=== PATIENT | female | born 2000 | race Caucasian/White ===

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

== ENCOUNTER 2021-01-31 00:10 | Inpatient (IN) | payer MEDICAID ==
[2021-01-31] MEDS ORDERED: Terbutaline 1 MG/ML SDV SUBCUT PRN (00:18)
[2021-01-31] MEDS ORDERED: Sodium Chloride 0.9% 10 ML SDV IV PRN (00:18)
[2021-01-31] MEDS ORDERED: Carboprost Tromethamine 250 MCG/1 ML Amp IM PRN (00:18)
[2021-01-31] MEDS ORDERED: Sodium Chloride 0.9% 2.5 ML Syringe FLUSH PRN (00:18)
[2021-01-31] MEDS ORDERED: Ondansetron 4 MG/2 ML SDV IVPUSH PRN (00:18)
[2021-01-31] MEDS ORDERED: Tranexamic Acid 1,000 MG in Sodium Chloride 0.9% 100 ML IV PRN (00:18)
[2021-01-31] MEDS ORDERED: Nalbuphine 10 MG/1 ML Vial IVPUSH PRN (00:18)
[2021-01-31] MEDS ORDERED: Misoprostol 25 MCG (1/4 of 100 MCG) Tab VAG PRN ×3 (00:18→05:37)
[2021-01-31] MEDS ORDERED: Methylergonovine 0.2 MG/1 ML Amp IM PRN (00:18)
[2021-01-31] MEDS ORDERED: Lidocaine 1% 50 ML MDV INJECT PRN (00:18)
[2021-01-31] MEDS ORDERED: Water For Irrigation,Sterile 1,000 ML Container IRR PRN (00:18)
[2021-01-31] MEDS ORDERED: Sodium Chloride 0.9% 10 ML Syringe FLUSH PRN (00:18)
[2021-01-31] MEDS ORDERED: Misoprostol 200 MCG Tab PO PRN (00:18)
[2021-01-31] MEDS ORDERED: Misoprostol 25 MCG (1/4 of 100 MCG) Tab PO ONE (00:29)
[2021-01-31] MEDS ORDERED: Oxytocin/0.9 % Sodium Chloride 30 UNIT/500 ML BAG IV SCH ×2 (00:30)
[2021-01-31] MEDS: Lactated Ringers 1,000 ML IV SCH ×3 (01:00→12:15)
[2021-01-31] MEDS ORDERED: Misoprostol 25 MCG (1/4 of 100 MCG) Tab PO PRN ×2 (05:33→05:40)
--- NOTE | 2021-01-31 07:26 | PCM.LDHP ---
L&D History of Present Illness - General Date of Service: 01/31/21 Admit Problem/Dx: Patient Status Order with Admit Dx/Problem 01/31/21 00:18 Patient Status [ADT] Routine Admission Diagnosis/Problem Admission Diagnosis/Problem 01/31/21 07:22 Minna is a 20 yo [id number] 39+0 weeks gestation (LIZ(US) 02/07/2021) that presents to L&D today for elective IOL. Patient seen in office 01/27/2021, RBAs of IOL and mode of cervical ripening (cytotec) discussed in office, consents signed. Reports adequate movement. Denies yessica vaginal bleeding, LOF, pain at this time. O pos, RE, GBS neg. EFW via [place] 7+ lbs. Unremarkable medical history/ NKDA. Medications: PNV. Patient has no other complaints or concerns at this time, expresses desire to continue with elective IOL. Source of Information: Patient History Limitations: Reports: No Limitations - History of Present Illness Pain Score: 2 Improves with: Reports: None Worsens with: Reports: None Associated Symptoms: Reports: N - Related Data Allergies/Adverse Reactions: Allergies Allergy/AdvReac Type Severity Reaction Status Date / Time No Known Allergies Allergy Verified 01/20/21 10:18 Home Medications: Home Meds . 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 General: Reports: No Symptoms HEENT: Reports: No Symptoms Pulmonary: Reports: No Symptoms Cardiovascular: Reports: No Symptoms Gastrointestinal: Reports: No Symptoms Genitourinary: Reports: No Symptoms Musculoskeletal: Reports: No Symptoms Skin: Reports: No Symptoms Psychiatric: Reports: No Symptoms Neurological: Reports: No Symptoms Hematologic/Lymphatic: Reports: No Symptoms Immunologic: Reports: No Symptoms L&D Exam - Exam Exam: See Below - Vital Signs Vital Signs: VSS, afebrile. See flowsheet. Weight: 223 lb - OB Specific Fundal Height In cm: 39 Contraction Duration (sec): 50-60 Contraction Frequency (min): 1-3 Contraction Intensity: Mild Movement: Active Heart Tones: Present Heart Tones per Min: 130 Heart Rate (FHR) Variability: Moderate (6-25 bmp) Presentation: Vertex (via SVE) - Elkins Score Elkins Score Cervix Position: Posterior Elkins Score Consistency: Soft Elkins Score Effacement: 31-50% Elkins Score Dilation: 1-2 cm Elkins Score Infant's Station: -3 Elkisn Score Total: 4 - Exam General: Alert, Oriented, Other HEENT: Conjunctiva Clear, EACs Clear, Hearing Intact, Mucosa Moist & [place], Nares Patent, PERRLA Neck: Supple, Trachea Midline Lungs: Clear to Auscultation, Normal Respiratory Effort Cardiovascular: Regular Rate, Regular Rhythm GI/Abdominal Exam: Normal Bowel Sounds, Soft, Non-Tender, No Organomegaly, No Distention Rectal Exam: Deferred Genitourinary: Normal external exam, Normal bimanual exam, Enlarged uterus (Gra vid uterus) Back Exam: Normal Inspection, Full Range of Motion Extremities: Normal Inspection, Normal Range of Motion, Non-Tender, No Pedal Edema, Normal Capillary Refill Skin: Warm, Dry, Intact Neurological: Cranial Nerves Intact, Reflexes Equal Bilateral Psychiatric: Alert, Normal Affect, Normal Mood - Patient Data Lab Results Last 24 hrs: Laboratory Results - last 24 hr 01/31/21 01/31/21 01/31/21 Range/Units 00:15 01:00 01:00 WBC 10.89 (4.0-11.0) K/uL RBC 3.62 L (4.30-5.90) M/uL Hgb 12.3 (12.0-16.0) g/dL Hct 35.7 L (36.0-46.0) % MCV 98.6 H (80.0-98.0) fL MCH 34.0 H (27.0-32.0) pg MCHC 34.5 (31.0-37.0) g/dL RDW Std Deviation 46.1 (28.0-62.0) fl RDW Coeff of Ronald 13 (11.0-15.0) % Plt Count 164 (150-400) K/uL MPV 9.60 (7.40-12.00) fL SARS-CoV-2 RNA (LUIS) NEGATIVE (NEGATIVE) Blood Type O POSITIVE Antibody Screen NEGATIVE Result Diagrams: 01/31/21 01:00 - Problem List (1) Encounter for induction of labor SNOMED Code(s): 928343667 ICD Code: Z34.90 - ENCNTR FOR SUPRVSN OF NORMAL , UNSP, UNSP TRIM ANGELO Status: Acute Priority: High Current Visit: Yes (2) 39 weeks gestation of SNOMED Code(s): 79404865 ICD Code: Z3A.39 - 39 WEEKS GESTATION OF Status: Acute Priority: High Current Visit: Yes Problem List Initiated/Reviewed/Updated: Yes Orders Last 24hrs: Active Orders 24 hr Category Date Time Status Patient Status [ADT] Routine ADT 01/31/21 00:18 Active Bedrest Bathroom Privileges [RC] ASDIRECTED Care 01/31/21 00:18 Active Communication Order [RC] ASDIRECTED Care 01/31/21 00:18 Active Communication Order [RC] ASDIRECTED Care 01/31/21 00:18 Active Heart Tones [RC] CONTINUOUS Care 01/31/21 00:18 Active Non Stress Test [RC] PER UNIT ROUTINE Care 01/31/21 00:18 Active May Shower [RC] ASDIRECTED Care 01/31/21 00:18 Active Notify Provider [RC] PRN Care 01/31/21 00:18 Active Notify Provider [RC] PRN Care 01/31/21 00:18 Active Notify Provider [RC] PRN Care 01/31/21 00:18 Active Notify Provider [RC] STAT Care 01/31/21 00:18 Active Oxygen Therapy [RC] ASDIRECTED Care 01/31/21 00:18 Active Up ad Paty [RC] ASDIRECTED Care 01/31/21 00:18 Active Vaginal Exam [RC] PRN Care 01/31/21 00:18 Active Vaginal Exam [RC] PRN Care 01/31/21 00:18 Active Vital Signs [RC] PER UNIT ROUTINE Care 01/31/21 00:18 Active Vital Signs [RC] PER UNIT ROUTINE Care 01/31/21 00:18 Active RPR (SYPHILIS SERO) W/ RFLX [REF] Routine Lab 01/31/21 01:00 Received Carboprost Tromethamine [Hemabate DS] Med 01/31/21 00:18 Active 250 mcg IM ASDIRECTED PRN Lactated Ringers [Ringers, Lactated] 1,000 ml Med 01/31/21 00:30 Active IV ASDIRECTED Lidocaine 1% [Xylocaine 1%] Med 01/31/21 00:18 Active 50 ml INJECT ONETIME PRN Methylergonovine [Methergine] Med 01/31/21 00:18 Active 0.2 mg IM ASDIRECTED PRN Nalbuphine [Nubain] Med 01/31/21 00:18 Active 10 mg IVPUSH Q1H PRN Ondansetron [Zofran] Med 01/31/21 00:18 Active 4 mg IVPUSH Q4H PRN Oxytocin/0.9 % Sodium Chloride [Oxytocin 30 Unit/500 ML Med 01/31/21 00:30 Active -NS] 30 unit in 500 ml IV TITRATE Oxytocin/0.9 % Sodium Chloride [Oxytocin 30 Unit/500 ML Med 01/31/21 00:30 Active -NS] 30 unit in 500 ml IV TITRATE Sodium Chloride 0.9% [Normal Saline] Med 01/31/21 00:18 Active 10 ml IV ASDIRECTED PRN Sodium Chloride 0.9% [Saline Flush] Med 01/31/21 00:18 Active 10 ml FLUSH ASDIRECTED PRN Sodium Chloride 0.9% [Saline Flush] Med 01/31/21 00:18 Active 2.5 ml FLUSH ASDIRECTED PRN Terbutaline [Brethine] Med 01/31/21 00:18 Active 0.25 mg SUBCUT ASDIRECTED PRN Tranexamic Acid [Cyklokapron] 1,000 mg Med 01/31/21 00:18 Active Sodium Chloride 0.9% [Normal Saline] 100 ml IV ONETIME Water For Irrigation,Sterile [Sterile Water for Med 01/31/21 00:18 Active Irrigation] 1,000 ml IRR ASDIRECTED PRN miSOPROStoL [Cytotec] Med 01/31/21 00:18 Active 200 mcg PO ONETIME PRN miSOPROStoL [Cytotec] Med 01/31/21 05:40 Active 25 mcg PO Q4H PRN miSOPROStoL [Cytotec] Med 01/31/21 00:18 Active 25 mcg VAG ONETIME PRN miSOPROStoL [Cytotec] Med 01/31/21 05:37 Active 25 mcg VAG Q4H PRN Scalp Electrode [WOMSER] Per Unit Routine Oth 01/31/21 00:18 Ordered Medication Administration Instruction [OM.PC] Q3H Oth 01/31/21 00:30 Ordered Peripheral IV Insertion Adult [OM.PC] Routine Oth 01/31/21 00:18 Ordered Resuscitation Status Routine Resus Stat 01/31/21 00:18 Ordered Medication Orders Carboprost Tromethamine (Carboprost Tromethamine 250 Mcg/1 Ml Amp) 250 mcg IM ASDIRECTED PRN PRN Reason: Post Hemorrhage Oxytocin/Sodium Chloride (Oxytocin 30 Unit/500 Ml-Ns) 30 unit in 500 mls @ 2 mls/hr IV TITRATE AUTUMN; Protocol Lactated Ringer's (Ringers, Lactated) 1,000 mls @ 150 mls/hr IV ASDIRECTED AUTUMN Last Admin: 01/31/21 07:20 Dose: 150 mls/hr Documented by: Infusion: 01/31/21 07:20 Dose: 150 mls/hr Documented by: Admin: 01/31/21 01:00 Dose: 150 mls/hr Documented by: BOLSSAC Oxytocin/Sodium Chloride (Oxytocin 30 Unit/500 Ml-Ns) 30 unit in 500 mls @ 999 mls/hr IV TITRATE AUTUMN Tranexamic Acid 1,000 mg/ (Sodium Chloride) 110 mls @ 660 mls/hr IV ONETIME PRN PRN Reason: Bleeding Lidocaine HCl (Lidocaine 1% 50 Ml Mdv) 50 ml INJECT ONETIME PRN PRN Reason: Laceration repair Methylergonovine Maleate (Methylergonovine 0.2 Mg/1 Ml Amp) 0.2 mg IM ASDIRECTED PRN PRN Reason: Post Hemorrhage Misoprostol (Misoprostol 25 Mcg (1/4 Of 100 Mcg) Tab) 25 mcg VAG ONETIME PRN PRN Reason: Cervical Ripening Last Admin: 01/31/21 01:33 Dose: 25 mcg Documented by: JARENAC Misoprostol (Misoprostol 200 Mcg Tab) 200 mcg PO ONETIME PRN PRN Reason: Post Hemorrhage Misoprostol (Misoprostol 25 Mcg (1/4 Of 100 Mcg) Tab) 25 mcg VAG Q4H PRN PRN Reason: Cervical Ripening Last Admin: 01/31/21 05:49 Dose: 25 mcg Documented by: CATERINASSAC Misoprostol (Misoprostol 25 Mcg (1/4 Of 100 Mcg) Tab) 25 mcg PO Q4H PRN PRN Reason: Other Last Admin: 01/31/21 05:49 Dose: 25 mcg Documented by: JARENAC Nalbuphine HCl (Nalbuphine 10 Mg/1 Ml Vial) 10 mg IVPUSH Q1H PRN PRN Reason: Pain (severe 7-10) Last Admin: 01/31/21 05:56 Dose: 10 mg Documented by: JARENAC Ondansetron HCl (Ondansetron 4 Mg/2 Ml Sdv) 4 mg IVPUSH Q4H PRN PRN Reason: Nausea/Vomiting Sodium Chloride (Sodium Chloride 0.9% 10 Ml Syringe) 10 ml FLUSH ASDIRECTED PRN PRN Reason: Keep Vein Open Sodium Chloride (Sodium Chloride 0.9% 2.5 Ml Syringe) 2.5 ml FLUSH ASDIRECTED PRN PRN Reason: Keep Vein Open Sodium Chloride (Sodium Chloride 0.9% 10 Ml Sdv) 10 ml IV ASDIRECTED PRN PRN Reason: IV Use Sterile Water (Water For Irrigation,Sterile 1,000 Ml Container) 1,000 ml IRR ASDIRECTED PRN PRN Reason: delivery Terbutaline Sulfate (Terbutaline 1 Mg/Ml Sdv) 0.25 mg SUBCUT ASDIRECTED PRN PRN Reason: Tacysystole Assessment/Plan Comment:: Admit for observation for elective IOL in anticipation of of term viable . FHR Cat I. Spontaneous contractions noted. Reassess cervical dilation ~1030 am. If no change has been make, may administer cytotec per orders. May ambulate and hydrotherapy as desired after reactive NST achieved; repeat NST per orders. May receive epidural if desired at 5+ cm. See new orders. Dr. Peoples notified and agreeable with POC.
[2021-01-31] MEDS ORDERED: Bupivacaine 0.25% 10 ML SDV ONE (12:11)
[2021-01-31] MEDS ORDERED: Ropivacaine HCl/PF 200 ML ONE (12:11)
--- NOTE | 2021-01-31 13:08 | PCM.PREANE ---
Preanesthetic Assessment - Anesthesia/Transfusion/Family Hx Anesthesia History: No Prior Anesthesia Family History of Anesthesia Reaction: No Transfusion History: Prior Transfusion Reaction - Review of Systems General: No Symptoms Pulmonary: No Symptoms Cardiovascular: No Symptoms Gastrointestinal: No Symptoms Neurological: No Symptoms Other: Reports: None - Physical Assessment Height: 5 ft 7 in Weight: 223 lb ASA Class: 2 Mental Status: Alert & Oriented x3 Airway Class: Mallampati = 3 Dentition: Reports: Normal Dentition ROM/Head Extension: Full Lungs: Clear to Auscultation, Normal Respiratory Effort Cardiovascular: Regular Rate, Regular Rhythm - Lab Values: Laboratory Last Values WBC 10.89 K/uL (4.0-11.0) 01/31/21 01:00 RBC 3.62 M/uL (4.30-5.90) L 01/31/21 01:00 Hgb 12.3 g/dL (12.0-16.0) 01/31/21 01:00 Hct 35.7 % (36.0-46.0) L 01/31/21 01:00 MCV 98.6 fL (80.0-98.0) H 01/31/21 01:00 MCH 34.0 pg (27.0-32.0) H 01/31/21 01:00 MCHC 34.5 g/dL (31.0-37.0) 01/31/21 01:00 RDW Std Deviation 46.1 fl (28.0-62.0) 01/31/21 01:00 RDW Coeff of Ronald 13 % (11.0-15.0) 01/31/21 01:00 Plt Count 164 K/uL (150-400) 01/31/21 01:00 MPV 9.60 fL (7.40-12.00) 01/31/21 01:00 SARS-CoV-2 RNA (LUIS) NEGATIVE (NEGATIVE) 01/31/21 00:15 Blood Type O POSITIVE 01/31/21 01:00 Antibody Screen NEGATIVE 01/31/21 01:00 - Allergies Allergies/Adverse Reactions: Allergies Allergy/AdvReac Type Severity Reaction Status Date / Time No Known Allergies Allergy Verified 01/20/21 10:18 - Blood Blood Available: Yes Product(s) Available: PRBC - Anesthesia Plan Pre-Op Medication Ordered: None - Acknowledgements Anesthesia Type Planned: Epidural Pt an Appropriate Candidate for the Planned Anesthesia: Yes Alternatives and Risks of Anesthesia Discussed w Pt/Guardian: Yes Pt/Guardian Understands and Agrees with Anesthesia Plan: Yes PreAnesthesia Questionnaire - Past Health History Medical/Surgical History: Denies 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 [No Known Home Meds] 06/20/19 [History] - CURRENT (IN HOUSE) MEDS Current Meds: Current Medications Carboprost Tromethamine (Carboprost Tromethamine 250 Mcg/1 Ml Amp) 250 mcg IM ASDIRECTED PRN PRN Reason: Post Hemorrhage Oxytocin/Sodium Chloride (Oxytocin 30 Unit/500 Ml-Ns) 30 unit in 500 mls @ 2 mls/hr IV TITRATE AUTUMN; Protocol Lactated Ringer's (Ringers, Lactated) 1,000 mls @ 150 mls/hr IV ASDIRECTED AUTUMN Last Admin: 01/31/21 12:15 Dose: 150 mls/hr Documented by: Oxytocin/Sodium Chloride (Oxytocin 30 Unit/500 Ml-Ns) 30 unit in 500 mls @ 999 mls/hr IV TITRATE AUTUMN Tranexamic Acid 1,000 mg/ (Sodium Chloride) 110 mls @ 660 mls/hr IV ONETIME PRN PRN Reason: Bleeding Lidocaine HCl (Lidocaine 1% 50 Ml Mdv) 50 ml INJECT ONETIME PRN PRN Reason: Laceration repair Methylergonovine Maleate (Methylergonovine 0.2 Mg/1 Ml Amp) 0.2 mg IM ASDIRECTED PRN PRN Reason: Post Hemorrhage Misoprostol (Misoprostol 25 Mcg (1/4 Of 100 Mcg) Tab) 25 mcg VAG ONETIME PRN PRN Reason: Cervical Ripening Last Admin: 01/31/21 01:33 Dose: 25 mcg Documented by: Misoprostol (Misoprostol 200 Mcg Tab) 200 mcg PO ONETIME PRN PRN Reason: Post Hemorrhage Misoprostol (Misoprostol 25 Mcg (1/4 Of 100 Mcg) Tab) 25 mcg VAG Q4H PRN PRN Reason: Cervical Ripening Last Admin: 01/31/21 05:49 Dose: 25 mcg Documented by: Misoprostol (Misoprostol 25 Mcg (1/4 Of 100 Mcg) Tab) 25 mcg PO Q4H PRN PRN Reason: Other Last Admin: 01/31/21 05:49 Dose: 25 mcg Documented by: Nalbuphine HCl (Nalbuphine 10 Mg/1 Ml Vial) 10 mg IVPUSH Q1H PRN PRN Reason: Pain (severe 7-10) Last Admin: 01/31/21 05:56 Dose: 10 mg Documented by: Ondansetron HCl (Ondansetron 4 Mg/2 Ml Sdv) 4 mg IVPUSH Q4H PRN PRN Reason: Nausea/Vomiting Sodium Chloride (Sodium Chloride 0.9% 10 Ml Syringe) 10 ml FLUSH ASDIRECTED PRN PRN Reason: Keep Vein Open Sodium Chloride (Sodium Chloride 0.9% 2.5 Ml Syringe) 2.5 ml FLUSH ASDIRECTED PRN PRN Reason: Keep Vein Open Sodium Chloride (Sodium Chloride 0.9% 10 Ml Sdv) 10 ml IV ASDIRECTED PRN PRN Reason: IV Use Sterile Water (Water For Irrigation,Sterile 1,000 Ml Container) 1,000 ml IRR ASDIRECTED PRN PRN Reason: delivery Terbutaline Sulfate (Terbutaline 1 Mg/Ml Sdv) 0.25 mg SUBCUT ASDIRECTED PRN PRN Reason: Tacysystole Discontinued Medications Bupivacaine HCl (Bupivacaine 0.25% 10 Ml Sdv) Confirm Administered Dose 10 ml .ROUTE .[employer] ONE Stop: 01/31/21 12:12 Ropivacaine (Naropin 0.2%) Confirm Administered Dose 200 mls @ as directed .ROUTE .[employer] ONE Stop: 01/31/21 12:12 Misoprostol (Misoprostol 25 Mcg (1/4 Of 100 Mcg) Tab) 25 mcg VAG Q4H PRN PRN Reason: Cervical Ripening Misoprostol (Misoprostol 25 Mcg (1/4 Of 100 Mcg) Tab) 25 mcg PO ONETIME ONE Stop: 01/31/21 00:30 Last Admin: 01/31/21 01:33 Dose: 25 mcg Documented by: Misoprostol (Misoprostol 25 Mcg (1/4 Of 100 Mcg) Tab) 25 mcg PO Q4H PRN PRN Reason: Cervical Ripening - Pre-Procedure Checklist Attending Provider Aware: Yes Chart Reviewed: Yes Consent Signed: Yes Labs Reviewed: Yes VS/FHR Reviewed: Yes Patient Identification Confirmation Method: Reports: Verbal Patient Pt an Appropriate Candidate for the Planned Anesthesia: Yes Alternatives and Risks of Anesthesia Discussed w Pt/Guardian: Yes - Procedure Procedure Start Date: 01/31/21 Procedure Start Time: 12:[address]: Reports: Blood Pressure, Heart Rate, SPO2 Functional IV: Yes Safety Measures: Reports: Patient Identified, Procedure Verified, Site Verified, Procedure Time Out Patient Position: Reports: Sitting Prep: Reports: Betadine x3, Sterile Drape Local Anesthetic: Reports: Intradermal Wheal w Lidocaine 1% Regional Placement Level: Reports: L3-4 Needle: Reports: 17 g Touhy Approach: Reports: Midline Technique: Reports: KAELYN Plastic Syringe Parasthesia: Reports: None Test Dose Time: 12:20 Test Dose Medication: Reports: Lidocaine 1.5% w Epinephrine 1:200,000 Test Dose Response: Reports: Negative Loading Dose Time: 12:20 Loading Dose Medication: bupivicaine 0.25% 10cc Loading Dose Patient Position: sitting Continuous Infusion Start Time: 12:25 Continuous Infusion Medication: ropivicaine 0.2% Continuous Infusion Rate: 16 Continuous Infusion PCS Bolus Option: 4 Continuous Infusion Lockout Dose (cc/hr): 28 Patient Position Post Placement: Reports: Supline/JAYDEN VS and FHR Monitored in Unit Post Placement: Yes Procedure End Date: 01/31/21 Procedure End Time: 13:15
[2021-01-31] MEDS ORDERED: Witch Hazel Medicated Pads 40/Jar TOP PRN (14:53)
[2021-01-31] MEDS ORDERED: Bisacodyl 10 MG Supp RECTAL PRN (14:53)
[2021-01-31] MEDS ORDERED: Benzocaine/Menthol 20%-0.5% Spray 78 GM Cannister TOP PRN (14:53)
[2021-01-31] MEDS ORDERED: Docusate Sodium 100 MG Cap PO PRN (14:53)
[2021-01-31] MEDS ORDERED: oxyCODONE 5 MG Tab PO PRN (14:53)
[2021-01-31] MEDS ORDERED: Lanolin 100% Cream 7 GM Tube TOP PRN (14:53)
[2021-01-31] MEDS ORDERED: Ibuprofen 400 MG Tab PO PRN (14:53)
[2021-01-31] MEDS ORDERED: Acetaminophen 500 MG Tab PO PRN ×2 (14:53)
[2021-01-31] MEDS: Ibuprofen 800 MG Tab PO PRN (20:32)
--- NOTE | 2021-02-01 06:54 | PCM.DEL ---
L & D Note - General Info Date of Service: 01/31/21 Mother's Due Date: 02/07/21 - Delivery Note Labor: Spontaneous Cervical Ripening Method: Misoprostil Delivery Outcome: Livebirth Delivery Method: Spontaneous Vaginal Delivery-Single Infant Delivery Mode: Spontaneous Presentation: Left Occiput Anterior (DEANNA) Nuchal Cord: None Anesthesia Type: None Amniotic Fluid Description: Clear Episiotomy Type: None Laceration: None Placenta: Intact, Spontaneous Cord: 3 Vessels Estimated Blood Loss: 350 Resuscitation Needed: No Custar: Stimulated, Warmed, [place] Used Score 1 min: 8 Score 5 min: 9 Second Stage Interventions: Reports: Encouragement Given, Pushing Effectively, Pushing, Feet in Foot Rests Delivery Comments (Free Text/Narrative):: Minna is a 20 yo current s/p uncomplicated at 39+0 weeks gestation (LIZ(US) 02/07/2021) following elective IOL. O pos, RE, GBS neg. Adequate epidural analgesia. Cephalic presentation. head delivered DEANNA spontaneously, body following shortly after with the next push. NBM placed to maternal abdomen, warmed, dried, stimulated with spontaneous cries. Umbilical cord left intact for ~1 min, clamped x 2, cut by FOB. Pitocin bolus commenced, gentle cord traction applied for active third stage management. Placenta birthed ~4 min S/P NBM, intact, Rangel, 3VC. Perineum inspected, in tact. Uterus firm @U-1. Moderate vaginal bleeding without clots noted. EBL 3500 ml. APGARS 8/9. weight 8 lb 0 oz (3630 g). Induction Criteria - Elkins Score Elkins Score Dilation: 1-2 cm Elkins Score Effacement: 40-50% Elkins Score Infant's Station: -3 Elkins Score Consistency: Soft Elkins Score Cervix Position: Posterior Elkins Score Total: 4 Elkins Score Presenting Part: Reports: Cephalic - Induction Gestational Age >/= 39 wks: Yes Estimated Pelvis: Reports: Adequate Reassuring Monitoring Strip: Yes Absence of Tachy Systole: Yes - General Info Date of Service: 02/01/21 Admission Dx/Problem (Free Text): Patient Status Order with Admit Dx/Problem 01/31/21 00:18 Patient Status [ADT] Routine Admission Diagnosis/Problem Admission Diagnosis/Problem 01/31/21 07:22 Minna is a 20 yo [id number] 39+0 weeks gestation (LIZ(US) 02/07/2021) that presents to L&D today for elective IOL. Patient seen in office 01/27/2021, RBAs of IOL and mode of cervical ripening (cytotec) discussed in office, consents signed. Reports adequate movement. Denies yessica vaginal bleeding, LOF, pain at this time. O pos, RE, GBS neg. EFW via [place]op[place] 7+ lbs. Unremarkable medical history/ NKDA. Medications: PNV. Patient has no other complaints or concerns at this time, expresses desire to continue with elective IOL. Functional Status: Reports: Pain Controlled, Tolerating Diet - Review of Systems General: Reports: No Symptoms HEENT: Reports: No Symptoms Pulmonary: Reports: No Symptoms Cardiovascular: Reports: No Symptoms Gastrointestinal: Reports: No Symptoms Genitourinary: Reports: No Symptoms Musculoskeletal: Reports: No Symptoms Skin: Reports: No Symptoms Neurological: Reports: No Symptoms Psychiatric: Reports: No Symptoms - Patient Data Vitals - Most Recent: Last Vital Signs Temp 97.4 F 02/01/21 03:35 Pulse 83 02/01/21 03:35 Resp 16 02/01/21 03:35 BP 104/59 L 02/01/21 03:35 Pulse Ox 96 02/01/21 03:35 Weight - Most Recent: 223 lb Lab Results Last 24 Hours: Laboratory Results - last 24 hr 02/01/21 Range/Units 04:47 Hgb 11.6 L (12.0-16.0) g/dL Hct 33.9 L (36.0-46.0) % Med Orders - Current: Current Medications Acetaminophen (Acetaminophen 500 Mg Tab) 500 mg PO Q4H PRN PRN Reason: Pain (mild 1-3) Acetaminophen (Acetaminophen 500 Mg Tab) 1,000 mg PO Q4H PRN PRN Reason: Pain (mild 1-3) Last Admin: 02/01/21 00:23 Dose: 1,000 mg Documented by: Benzocaine/Menthol (Benzocaine/Menthol 20%-0.5% [place] 78 Gm Cannister) 78 gm TOP ASDIRECTED PRN PRN Reason: Perineal Comfort Measure Bisacodyl (Bisacodyl 10 Mg Supp) 10 mg RECTAL ONETIME PRN PRN Reason: Constipation Docusate Sodium (Docusate Sodium 100 Mg Cap) 100 mg PO Q12H PRN PRN Reason: Constipation Emollient Ointment (Lanolin 100% Cream 7 Gm Tube) 0 gm TOP ASDIRECTED PRN PRN Reason: Sore Nipples Ibuprofen (Ibuprofen 400 Mg Tab) 400 mg PO Q4H PRN PRN Reason: Pain (mild 1-3) Ibuprofen (Ibuprofen 800 Mg Tab) 800 mg PO Q6H PRN PRN Reason: Pain (mild 1-3) Last Admin: 01/31/21 20:32 Dose: 800 mg Documented by: Oxycodone HCl (Oxycodone 5 Mg Tab) 5 mg PO Q2H PRN PRN Reason: Pain (severe 7-10) Witch Clarisa (Witch Clarisa Medicated Pads 40/Jar) 1 pad TOP ASDIRECTED PRN PRN Reason: comfort care Discontinued Medications Bupivacaine HCl (Bupivacaine 0.25% 10 Ml Sdv) Confirm Administered Dose 10 ml .ROUTE .[facility] ONE Stop: 01/31/21 12:12 Carboprost Tromethamine (Carboprost Tromethamine 250 Mcg/1 Ml Amp) 250 mcg IM ASDIRECTED PRN PRN Reason: Post Hemorrhage Oxytocin/Sodium Chloride (Oxytocin 30 Unit/500 Ml-Ns) 30 unit in 500 mls @ 2 mls/hr IV TITRATE AUTUMN; Protocol Lactated Ringer's (Ringers, Lactated) 1,000 mls @ 150 mls/hr IV ASDIRECTED AUTUMN Last Admin: 01/31/21 12:15 Dose: 150 mls/hr Documented by: Oxytocin/Sodium Chloride (Oxytocin 30 Unit/500 Ml-Ns) 30 unit in 500 mls @ 999 mls/hr IV TITRATE AUTUMN Last Admin: 01/31/21 14:05 Dose: 500 mls/hr Documented by: Tranexamic Acid 1,000 mg/ (Sodium Chloride) 110 mls @ 660 mls/hr IV ONETIME PRN PRN Reason: Bleeding Ropivacaine (Naropin 0.2%) Confirm Administered Dose 200 mls @ as directed .ROUTE .[facility] ONE Stop: 01/31/21 12:12 Lidocaine HCl (Lidocaine 1% 50 Ml Mdv) 50 ml INJECT ONETIME PRN PRN Reason: Laceration repair Methylergonovine Maleate (Methylergonovine 0.2 Mg/1 Ml Amp) 0.2 mg IM ASDIRECTED PRN PRN Reason: Post Hemorrhage Misoprostol (Misoprostol 25 Mcg (1/4 Of 100 Mcg) Tab) 25 mcg VAG ONETIME PRN PRN Reason: Cervical Ripening Last Admin: 01/31/21 01:33 Dose: 25 mcg Documented by: Misoprostol (Misoprostol 25 Mcg (1/4 Of 100 Mcg) Tab) 25 mcg VAG Q4H PRN PRN Reason: Cervical Ripening Misoprostol (Misoprostol 200 Mcg Tab) 200 mcg PO ONETIME PRN PRN Reason: Post Hemorrhage Misoprostol (Misoprostol 25 Mcg (1/4 Of 100 Mcg) Tab) 25 mcg PO ONETIME ONE Stop: 01/31/21 00:30 Last Admin: 01/31/21 01:33 Dose: 25 mcg Documented by: Misoprostol (Misoprostol 25 Mcg (1/4 Of 100 Mcg) Tab) 25 mcg PO Q4H PRN PRN Reason: Cervical Ripening Misoprostol (Misoprostol 25 Mcg (1/4 Of 100 Mcg) Tab) 25 mcg VAG Q4H PRN PRN Reason: Cervical Ripening Last Admin: 01/31/21 05:49 Dose: 25 mcg Documented by: Misoprostol (Misoprostol 25 Mcg (1/4 Of 100 Mcg) Tab) 25 mcg PO Q4H PRN PRN Reason: Other Last Admin: 01/31/21 05:49 Dose: 25 mcg Documented by: Nalbuphine HCl (Nalbuphine 10 Mg/1 Ml Vial) 10 mg IVPUSH Q1H PRN PRN Reason: Pain (severe 7-10) Last Admin: 01/31/21 05:56 Dose: 10 mg Documented by: Ondansetron HCl (Ondansetron 4 Mg/2 Ml Sdv) 4 mg IVPUSH Q4H PRN PRN Reason: Nausea/Vomiting Sodium Chloride (Sodium Chloride 0.9% 10 Ml Syringe) 10 ml FLUSH ASDIRECTED PRN PRN Reason: Keep Vein Open Sodium Chloride (Sodium Chloride 0.9% 2.5 Ml Syringe) 2.5 ml FLUSH ASDIRECTED PRN PRN Reason: Keep Vein Open Sodium Chloride (Sodium Chloride 0.9% 10 Ml Sdv) 10 ml IV ASDIRECTED PRN PRN Reason: IV Use Sterile Water (Water For Irrigation,Sterile 1,000 Ml Container) 1,000 ml IRR ASDIRECTED PRN PRN Reason: delivery Terbutaline Sulfate (Terbutaline 1 Mg/Ml Sdv) 0.25 mg SUBCUT ASDIRECTED PRN PRN Reason: Tacysystole - Exam Urinary Catheter Total Time: 0Days 3Hours General: Alert, Oriented, Cooperative, No Acute Distress HEENT: Pupils Equal, Mucous Membr. Moist/[place] Neck: Supple Lungs: Clear to Auscultation, Normal Respiratory Effort Cardiovascular: Regular Rate, Regular Rhythm GI/Abdominal Exam: Normal Bowel Sounds, Soft, Non-Tender, No Organomegaly, No Distention (Female) Exam: Normal External Exam, Enlarged Uterus ( uterus, firm u-1), Vaginal Bleeding (Moderate rubra lochia, no clots.) Back Exam: Normal Inspection, Full Range of Motion Extremities: Normal Inspection, Normal Range of Motion, Non-Tender, No Pedal Edema, Normal Capillary Refill Skin: Warm, Dry, Intact Wound/Incisions: No Drainage Neurological: No New Focal Deficit (BLE epidural intact) Psy/Mental Status: Alert, Normal Affect, Normal Mood - Problem List & Annotations (1) (spontaneous vaginal delivery) SNOMED Code(s): 281071517 Code(s): O80 - ENCOUNTER FOR FULL-TERM UNCOMPLICATED DELIVERY Status: Acute Priority: High Current Visit: Yes (2) Lactating mother SNOMED Code(s): 846071073, 583428366 Code(s): Z39.1 - ENCOUNTER FOR CARE AND EXAMINATION OF LACTATING MOTHER Sta tus: Acute Priority: High Current Visit: Yes - Problem List Review Problem List Initiated/Reviewed/Updated: Yes - My Orders Last 24 Hours: My Active Orders 01/31/21 14:53 Patient Status [ADT] Routine May Shower [RC] ASDIRECTED Up ad Paty [RC] ASDIRECTED Vital Signs [RC] PER UNIT ROUTINE Acetaminophen [Tylenol Extra Strength] 1,000 mg PO Q4H PRN Acetaminophen [Tylenol Extra Strength] 500 mg PO Q4H PRN Benzocaine/Menthol [Dermoplast Pain Relief 20%-0.5% [place]] 78 gm TOP ASDIRECTED PRN Docusate Sodium [Colace] 100 mg PO Q12H PRN Ibuprofen [Motrin] 400 mg PO Q4H PRN Ibuprofen [Motrin] 800 mg PO Q6H PRN Lanolin [Lansinoh HPA] See Dose Instructions TOP ASDIRECTED PRN bisacodyL [Dulcolax] 10 mg RECTAL ONETIME PRN oxyCODONE 5 mg PO Q2H PRN witch Clarisa [Tucks] 1 pad TOP ASDIRECTED PRN Assess Lochia [WOMSER] Per Unit Routine Assess Uterine Involution [WOMSER] Per Unit Routine Peripheral IV Discontinue [OM.PC] Routine Resuscitation Status Routine 01/31/21 14:54 Ice Therapy [OM.PC] Per Unit Routine Perineal Care [OM.PC] Per Unit Routine Sitz Bath [OM.PC] Per Unit Routine 01/31/21 Dinner Regular Diet [DIET] - Plan Plan:: Admit inpatient to unit S/P of term, viable NBM. Regular diet as tolerated. Plan to D/C epidural now, may ambulate with assistance in 2-4 hours or when sensation returns. If patient does not void within 6 hours S/P charles torres, notify provider. support may be provided if desired or needed. H/H in am. See new orders. Dr. Peoples notified and agreeable with POC.
--- NOTE | 2021-02-01 07:01 | PCM.DCSUM1 ---
Discharge Summary - Hospital Course Free Text/Narrative:: Minna is a 20 yo current PPD1 s/p uncomplicated at 39+0 weeks gestation (LIZ(US) 02/07/2021) following elective IOL. O pos, RE, GBS neg. Patient has no complaints or concerns at this time. Patient is exclusively well, resting comfortably in bed with in bassinet. Patient reports she is eating, voiding, ambulating independently and without difficulty. Patient denies any problems or concerns at this time except mild-mo derate intermittent uterine cramping relieved with Tylenol and Ibuprofen. Patient reports scant to small vaginal bleeding with no clots. Patient verbalizes her readiness to be discharged home today. Diagnosis: Stroke: No - Discharge Data Discharge Date: 02/01/21 Discharge Disposition: Home, Self-Care 01 Condition: Good - Referral to Home Health Primary Care Physician: PCP None - Discharge Diagnosis/Problem(s) (1) (spontaneous vaginal delivery) SNOMED Code(s): 018657039 ICD Code: O80 - ENCOUNTER FOR FULL-TERM UNCOMPLICATED DELIVERY Status: Acute Priority: High Current Visit: Yes (2) Lactating mother SNOMED Code(s): 518302512, 590514074 ICD Code: Z39.1 - ENCOUNTER FOR CARE AND EXAMINATION OF LACTATING MOTHER Status: Acute Priority: High Current Visit: Yes - Patient Instructions Diet: Usual Diet as Tolerated, Regular Diet as Tolerated, Drink 8-10+ Glasses/Day Activity: As Tolerated, No Strenuous Activities, Rest and Relax Today Driving: May Drive Today Showering/Bathing: May Shower Showering/Bathing, Other: May sitz bathe for perineal comfort Notify Provider of: Fever, Increased Pain, Swelling and Redness, Drainage, Nausea and/or Vomiting - Discharge Plan *PRESCRIPTION DRUG MONITORING PROGRAM REVIEWED*: No *COPY OF PRESCRIPTION DRUG MONITORING REPORT IN PATIENT WINNIE: No Prescriptions/Med Rec: Ibuprofen [Motrin] 800 mg PO Q8H PRN #30 tablet PRN Reason: Pain (Mild 1-3) Home Medications: Home Meds Ibuprofen [Motrin] 800 mg PO Q8H PRN #30 tablet 02/01/21 [Rx] Oxygen Therapy Mode: Room Air - Discharge Summary/Plan Comment DC Time >30 min.: Yes Discharge Summary/Plan Comment: Hemodynamically stable, afebrile. Independent with ADLs, pain well controlled. Ibuprofen prescription sent to pharmacy. Warning S/Ss, when to call for help discussed, no questions or concerns. F/U in office in 6 weeks for visit or sooner if problem arise. - General Info Date of Service: 02/01/21 Admission Dx/Problem (Free Text: Patient Status Order with Admit Dx/Problem 01/31/21 00:18 Patient Status [ADT] Routine Admission Diagnosis/Problem Admission Diagnosis/Problem 01/31/21 07:22 Minna is a 20 yo [id number] 39+0 weeks gestation (LIZ(US) 02/07/2021) that presents to L&D today for elective IOL. Patient seen in office 01/27/2021, RBAs of IOL and mode of cervical ripening (cytotec) discussed in office, consents signed. Reports adequate movement. Denies yessica vaginal bleeding, LOF, pain at this time. O pos, RE, GBS neg. EFW via [place] 7+ lbs. Unremarkable medical history/ NKDA. Medications: PNV. Patient has no other complaints or concerns at this time, expresses desire to continue with elective IOL. Functional Status: Reports: Pain Controlled, Tolerating Diet, Ambulating, Urinating - Review of Systems General: Reports: No Symptoms HEENT: Reports: No Symptoms Pulmonary: Reports: No Symptoms Cardiovascular: Reports: No Symptoms Gastrointestinal: Reports: No Symptoms Genitourinary: Reports: No Symptoms Musculoskeletal: Reports: No Symptoms Skin: Reports: No Symptoms Neurological: Reports: No Symptoms Psychiatric: Reports: No Symptoms - Patient Data Vitals - Most Recent: Last Vital Signs Temp 97.4 F 02/01/21 03:35 Pulse 83 02/01/21 03:35 Resp 16 02/01/21 03:35 BP 104/59 L 02/01/21 03:35 Pulse Ox 96 02/01/21 03:35 Weight - Most Recent: 223 lb Lab Results - Last 24 hrs: Laboratory Results - last 24 hr 02/01/21 Range/Units 04:47 Hgb 11.6 L (12.0-16.0) g/dL Hct 33.9 L (36.0-46.0) % Med Orders - Current: Current Medications Acetaminophen (Acetaminophen 500 Mg Tab) 500 mg PO Q4H PRN PRN Reason: Pain (mild 1-3) Acetaminophen (Acetaminophen 500 Mg Tab) 1,000 mg PO Q4H PRN PRN Reason: Pain (mild 1-3) Last Admin: 02/01/21 00:23 Dose: 1,000 mg Documented by: Benzocaine/Menthol (Benzocaine/Menthol 20%-0.5% [place] 78 Gm Cannister) 78 gm TOP ASDIRECTED PRN PRN Reason: Perineal Comfort Measure Bisacodyl (Bisacodyl 10 Mg Supp) 10 mg RECTAL ONETIME PRN PRN Reason: Constipation Docusate Sodium (Docusate Sodium 100 Mg Cap) 100 mg PO Q12H PRN PRN Reason: Constipation Emollient Ointment (Lanolin 100% Cream 7 Gm Tube) 0 gm TOP ASDIRECTED PRN PRN Reason: Sore Nipples Ibuprofen (Ibuprofen 400 Mg Tab) 400 mg PO Q4H PRN PRN Reason: Pain (mild 1-3) Ibuprofen (Ibuprofen 800 Mg Tab) 800 mg PO Q6H PRN PRN Reason: Pain (mild 1-3) Last Admin: 01/31/21 20:32 Dose: 800 mg Documented by: Oxycodone HCl (Oxycodone 5 Mg Tab) 5 mg PO Q2H PRN PRN Reason: Pain (severe 7-10) Witch Clarisa (Witch Clarisa Medicated Pads 40/Jar) 1 pad TOP ASDIRECTED PRN PRN Reason: comfort care Discontinued Medications Bupivacaine HCl (Bupivacaine 0.25% 10 Ml Sdv) Confirm Administered Dose 10 ml .ROUTE .[facility] ONE Stop: 01/31/21 12:12 Carboprost Tromethamine (Carboprost Tromethamine 250 Mcg/1 Ml Amp) 250 mcg IM ASDIRECTED PRN PRN Reason: Post Hemorrhage Oxytocin/Sodium Chloride (Oxytocin 30 Unit/500 Ml-Ns) 30 unit in 500 mls @ 2 mls/hr IV TITRATE AUTUMN; Protocol Lactated Ringer's (Ringers, Lactated) 1,000 mls @ 150 mls/hr IV ASDIRECTED AUTUMN Last Admin: 01/31/21 12:15 Dose: 150 mls/hr Documented by: Oxytocin/Sodium Chloride (Oxytocin 30 Unit/500 Ml-Ns) 30 unit in 500 mls @ 999 mls/hr IV TITRATE AUTUMN Last Admin: 01/31/21 14:05 Dose: 500 mls/hr Documented by: Tranexamic Acid 1,000 mg/ (Sodium Chloride) 110 mls @ 660 mls/hr IV ONETIME PRN PRN Reason: Bleeding Ropivacaine (Naropin 0.2%) Confirm Administered Dose 200 mls @ as directed .ROUTE .[facility] ONE Stop: 01/31/21 12:12 Lidocaine HCl (Lidocaine 1% 50 Ml Mdv) 50 ml INJECT ONETIME PRN PRN Reason: Laceration repair Methylergonovine Maleate (Methylergonovine 0.2 Mg/1 Ml Amp) 0.2 mg IM ASDIRECTED PRN PRN Reason: Post Hemorrhage Misoprostol (Misoprostol 25 Mcg (1/4 Of 100 Mcg) Tab) 25 mcg VAG ONETIME PRN PRN Reason: Cervical Ripening Last Admin: 01/31/21 01:33 Dose: 25 mcg Documented by: Misoprostol (Misoprostol 25 Mcg (1/4 Of 100 Mcg) Tab) 25 mcg VAG Q4H PRN PRN Reason: Cervical Ripening Misoprostol (Misoprostol 200 Mcg Tab) 200 mcg PO ONETIME PRN PRN Reason: Post Hemorrhage Misoprostol (Misoprostol 25 Mcg (1/4 Of 100 Mcg) Tab) 25 mcg PO ONETIME ONE Stop: 01/31/21 00:30 Last Admin: 01/31/21 01:33 Dose: 25 mcg Documented by: Misoprostol (Misoprostol 25 Mcg (1/4 Of 100 Mcg) Tab) 25 mcg PO Q4H PRN PRN Reason: Cervical Ripening Misoprostol (Misoprostol 25 Mcg (1/4 Of 100 Mcg) Tab) 25 mcg VAG Q4H PRN PRN Reason: Cervical Ripening Last Admin: 01/31/21 05:49 Dose: 25 mcg Documented by: Misoprostol (Misoprostol 25 Mcg (1/4 Of 100 Mcg) Tab) 25 mcg PO Q4H PRN PRN Reason: Other Last Admin: 01/31/21 05:49 Dose: 25 mcg Documented by: Nalbuphine HCl (Nalbuphine 10 Mg/1 Ml Vial) 10 mg IVPUSH Q1H PRN PRN Reason: Pain (severe 7-10) Last Admin: 01/31/21 05:56 Dose: 10 mg Documented by: Ondansetron HCl (Ondansetron 4 Mg/2 Ml Sdv) 4 mg IVPUSH Q4H PRN PRN Reason: Nausea/Vomiting Sodium Chloride (Sodium Chloride 0.9% 10 Ml Syringe) 10 ml FLUSH ASDIRECTED PRN PRN Reason: Keep Vein Open Sodium Chloride (Sodium Chloride 0.9% 2.5 Ml Syringe) 2.5 ml FLUSH ASDIRECTED PRN PRN Reason: Keep Vein Open Sodium Chloride (Sodium Chloride 0.9% 10 Ml Sdv) 10 ml IV ASDIRECTED PRN PRN Reason: IV Use Sterile Water (Water For Irrigation,Sterile 1,000 Ml Container) 1,000 ml IRR ASDIRECTED PRN PRN Reason: delivery Terbutaline Sulfate (Terbutaline 1 Mg/Ml Sdv) 0.25 mg SUBCUT ASDIRECTED PRN PRN Reason: Tacysystole - Exam General: Reports: Alert, Oriented, Cooperative, No Acute Distress HEENT: Reports: Pupils Equal, Mucous Membr. Moist/[place] Neck: Reports: Supple Lungs: Reports: Clear to Auscultation, Normal Respiratory Effort Cardiovascular: Reports: Regular Rate, Regular Rhythm GI/Abdominal Exam: Normal Bowel Sounds, Soft, Non-Tender, No Organomegaly, No Distention (Female) Exam: Normal External Exam, Enlarged Uterus ( uterus, firm u-1), Vaginal Bleeding (Scant to small rubra lochia, no clots.) Rectal (Female) Exam: Deferred Back Exam: Reports: Normal Inspection, Full Range of Motion Extremities: Normal Inspection, Normal Range of Motion, Non-Tender, No Pedal Edema, Normal Capillary Refill Skin: Reports: Warm, Dry, Intact Neurological: Reports: No New Focal Deficit Psy/Mental Status: Reports: Alert, Normal Affect, Normal Mood
[2021-02-01] MEDS: Ibuprofen 800 MG Tab PO PRN (08:46)
--- NOTE | 2021-02-01 09:42 | PCM.PNPP ---
- General Info Date of Service: 02/01/21 Functional Status: Reports: Pain Controlled - Review of Systems General: Reports: No Symptoms HEENT: Reports: No Symptoms Pulmonary: Reports: No Symptoms Cardiovascular: Reports: No Symptoms Gastrointestinal: Reports: No Symptoms Genitourinary: Reports: No Symptoms Musculoskeletal: Reports: No Symptoms Skin: Reports: No Symptoms Neurological: Reports: No Symptoms Psychiatric: Reports: No Symptoms - General Info Date of Service: 02/01/21 - Patient Data Vital Signs - Most Recent: Last Vital Signs Temp 36.6 C 02/01/21 07:45 Pulse 82 02/01/21 07:45 Resp 14 02/01/21 07:45 BP 109/57 L 02/01/21 07:45 Pulse Ox 98 02/01/21 07:45 Weight - Most Recent: 101.151 kg Lab Results - Last 24 Hours: Laboratory Results - last 24 hr 02/01/21 Range/Units 04:47 Hgb 11.6 L (12.0-16.0) g/dL Hct 33.9 L (36.0-46.0) % Med Orders - Current: Current Medications Acetaminophen (Acetaminophen 500 Mg Tab) 500 mg PO Q4H PRN PRN Reason: Pain (mild 1-3) Acetaminophen (Acetaminophen 500 Mg Tab) 1,000 mg PO Q4H PRN PRN Reason: Pain (mild 1-3) Last Admin: 02/01/21 00:23 Dose: 1,000 mg Documented by: Benzocaine/Menthol (Benzocaine/Menthol 20%-0.5% [place] 78 Gm Cannister) 78 gm TOP ASDIRECTED PRN PRN Reason: Perineal Comfort Measure Last Admin: 02/01/21 07:53 Dose: 1 applic Documented by: Bisacodyl (Bisacodyl 10 Mg Supp) 10 mg RECTAL ONETIME PRN PRN Reason: Constipation Docusate Sodium (Docusate Sodium 100 Mg Cap) 100 mg PO Q12H PRN PRN Reason: Constipation Last Admin: 02/01/21 07:52 Dose: 100 mg Documented by: Emollient Ointment (Lanolin 100% Cream 7 Gm Tube) 0 gm TOP ASDIRECTED PRN PRN Reason: Sore Nipples Last Admin: 02/01/21 07:51 Dose: 1 applic Documented by: Ibuprofen (Ibuprofen 400 Mg Tab) 400 mg PO Q4H PRN PRN Reason: Pain (mild 1-3) Ibuprofen (Ibuprofen 800 Mg Tab) 800 mg PO Q6H PRN PRN Reason: Pain (mild 1-3) Last Admin: 02/01/21 08:46 Dose: 800 mg Documented by: Oxycodone HCl (Oxycodone 5 Mg Tab) 5 mg PO Q2H PRN PRN Reason: Pain (severe 7-10) Witch Clarisa (Witch Clarisa Medicated Pads 40/Jar) 1 pad TOP ASDIRECTED PRN PRN Reason: comfort care Last Admin: 02/01/21 07:52 Dose: 1 applic Documented by: Discontinued Medications Bupivacaine HCl (Bupivacaine 0.25% 10 Ml Sdv) Confirm Administered Dose 10 ml .ROUTE .[facility] ONE Stop: 01/31/21 12:12 Last Admin: 02/01/21 07:23 Dose: Not Given Documented by: Carboprost Tromethamine (Carboprost Tromethamine 250 Mcg/1 Ml Amp) 250 mcg IM ASDIRECTED PRN PRN Reason: Post Hemorrhage Oxytocin/Sodium Chloride (Oxytocin 30 Unit/500 Ml-Ns) 30 unit in 500 mls @ 2 mls/hr IV TITRATE AUTUMN; Protocol Lactated Ringer's (Ringers, Lactated) 1,000 mls @ 150 mls/hr IV ASDIRECTED AUTUMN Last Admin: 01/31/21 12:15 Dose: 150 mls/hr Documented by: Oxytocin/Sodium Chloride (Oxytocin 30 Unit/500 Ml-Ns) 30 unit in 500 mls @ 999 mls/hr IV TITRATE AUTUMN Last Admin: 01/31/21 14:05 Dose: 500 mls/hr Documented by: Tranexamic Acid 1,000 mg/ (Sodium Chloride) 110 mls @ 660 mls/hr IV ONETIME PRN PRN Reason: Bleeding Ropivacaine (Naropin 0.2%) Confirm Administered Dose 200 mls @ as directed .ROUTE .[employer] ONE Stop: 01/31/21 12:12 Lidocaine HCl (Lidocaine 1% 50 Ml Mdv) 50 ml INJECT ONETIME PRN PRN Reason: Laceration repair Methylergonovine Maleate (Methylergonovine 0.2 Mg/1 Ml Amp) 0.2 mg IM ASDIRECTED PRN PRN Reason: Post Hemorrhage Misoprostol (Misoprostol 25 Mcg (1/4 Of 100 Mcg) Tab) 25 mcg VAG ONETIME PRN PRN Reason: Cervical Ripening Last Admin: 01/31/21 01:33 Dose: 25 mcg Documented by: Misoprostol (Misoprostol 25 Mcg (1/4 Of 100 Mcg) Tab) 25 mcg VAG Q4H PRN PRN Reason: Cervical Ripening Misoprostol (Misoprostol 200 Mcg Tab) 200 mcg PO ONETIME PRN PRN Reason: Post Hemorrhage Misoprostol (Misoprostol 25 Mcg (1/4 Of 100 Mcg) Tab) 25 mcg PO ONETIME ONE Stop: 01/31/21 00:30 Last Admin: 01/31/21 01:33 Dose: 25 mcg Documented by: Misoprostol (Misoprostol 25 Mcg (1/4 Of 100 Mcg) Tab) 25 mcg PO Q4H PRN PRN Reason: Cervical Ripening Misoprostol (Misoprostol 25 Mcg (1/4 Of 100 Mcg) Tab) 25 mcg VAG Q4H PRN PRN Reason: Cervical Ripening Last Admin: 01/31/21 05:49 Dose: 25 mcg Documented by: Misoprostol (Misoprostol 25 Mcg (1/4 Of 100 Mcg) Tab) 25 mcg PO Q4H PRN PRN Reason: Other Last Admin: 01/31/21 05:49 Dose: 25 mcg Documented by: Nalbuphine HCl (Nalbuphine 10 Mg/1 Ml Vial) 10 mg IVPUSH Q1H PRN PRN Reason: Pain (severe 7-10) Last Admin: 01/31/21 05:56 Dose: 10 mg Documented by: Ondansetron HCl (Ondansetron 4 Mg/2 Ml Sdv) 4 mg IVPUSH Q4H PRN PRN Reason: Nausea/Vomiting Sodium Chloride (Sodium Chloride 0.9% 10 Ml Syringe) 10 ml FLUSH ASDIRECTED PRN PRN Reason: Keep Vein Open Sodium Chloride (Sodium Chloride 0.9% 2.5 Ml Syringe) 2.5 ml FLUSH ASDIRECTED PRN PRN Reason: Keep Vein Open Sodium Chloride (Sodium Chloride 0.9% 10 Ml Sdv) 10 ml IV ASDIRECTED PRN PRN Reason: IV Use Sterile Water (Water For Irrigation,Sterile 1,000 Ml Container) 1,000 ml IRR ASDIRECTED PRN PRN Reason: delivery Terbutaline Sulfate (Terbutaline 1 Mg/Ml Sdv) 0.25 mg SUBCUT ASDIRECTED PRN PRN Reason: Tacysystole - Interaction Disposition, : [place]ie in Room with Family Infant Interaction: Holding Infant Feeding: Attempted ; Nursed Fair/Poor Support Person: Significant Other - Recovery Exam Fundal Tone: Firm Fundal Level: 2 Fingerbreadths Below Umbilicus Fundal Placement: Midline Lochia Amount: Scant Lochia Color: Rubra/Red Perineum Description: Intact, Minimal Bruising/Swelling Bladder Status: Voiding - Exam General: Alert, Oriented HEENT: Pupils Equal Neck: Supple Lungs: Clear to Auscultation, Normal Respiratory Effort Cardiovascular: Regular Rate, Regular Rhythm GI/Abdominal Exam: Normal Bowel Sounds, Soft, Non-Tender, No Organomegaly, No Distention, No Abnormal Bruit, No Mass, Pelvis Stable Extremities: Normal Inspection, Normal Range of Motion, Non-Tender, No Pedal Edema, Normal Capillary Refill Skin: Warm, Dry, Intact Wound/Incisions: Healing Well Neurological: No New Focal Deficit Psy/Mental Status: Alert, Normal Affect, Normal Mood - Problem List Review Problem List Initiated/Reviewed/Updated: Yes - Assessment Assessment:: Post normal spontaneous vaginal delivery doing well we will consider discharging her home today. Regular instruction - Plan Plan:: Admit inpatient to unit S/P of term, viable NBM. Regular diet as tolerated. Plan to D/C epidural now, may ambulate with assistance in 2-4 hours or when sensation returns. If patient does not void within 6 hours S/P delivery, notify provider. support may be provided if desired or needed. H/H in am. See new orders. Dr. Peoples notified and agreeable with POC.
== END 2021-02-01 16:20 | disposition home or self-care (01) | DRG 807 ==
LOC: MW.OBCHECK 00:10 → MW.OB 00:13 → MW.OBCHECK 00:18 → OBSVTOIN 14:53 → MW.OB 17:59
PROVIDERS: ADMIT Obstetrics & Gynecology; ATTEND Obstetrics & Gynecology
PROC: 10E0XZZ Delivery of Products of Conception, External Approach (ICD-10-PCS; principal; 2021-01-31)
PROC: 3E0P7VZ Introduction of Hormone into Female Reproductive, Via Natural or Artificial Opening (ICD-10-PCS; 2021-01-31)
PROC: 10907ZC Drainage of Amniotic Fluid, Therapeutic from Products of Conception, Via Natural or Artificial Opening (ICD-10-PCS; 2021-01-31)
PROC: 3E0R3BZ Introduction of Anesthetic Agent into Spinal Canal, Percutaneous Approach (ICD-10-PCS; 2021-01-31)
PROC: 00HU03Z Insertion of Infusion Device into Spinal Canal, Open Approach (ICD-10-PCS; 2021-01-31)
DX: O80 Encounter for full-term uncomplicated delivery (principal); Z37.0 Single live birth; Z3A.38 38 weeks gestation of pregnancy; Z20.822 Contact with and (suspected) exposure to COVID-19
CPT/HCPCS: 01967; 36415; 51702; 59025; 59409; 85014; 85018; 85027; 86592; 86850; 86900; 86901; A9270-GY; J2300; J2590; J2795; J3490; J7120; U0002

== ENCOUNTER 2021-07-30 10:31 | Emergency (ER) | payer MEDICAID ==
[2021-07-30] MEDS ORDERED: Sodium Chloride 0.9% 1,000 ML IV ONE (10:58)
[2021-07-30] MEDS ORDERED: Acetaminophen/Codeine 120-12 MG/5 ML Soln 5 ML UD Cup PO ONE (10:59)
[2021-07-30 11:44] LABS: BLOOD UREA NITROGEN,BUN 7 mg/dL (7.0-18.0); CARBON DIOXIDE,CO2 18.8 mmol/L (21.0-32.0); CHLORIDE,CL 100 mmol/L (98-107); GLUCOSE RANDOM 101 mg/dL (74-106); POTASSIUM,K 3.6 mmol/L (3.5-5.1); SODIUM,NA 136 mmol/L (136-145)
[2021-07-30] MEDS ORDERED: Albuterol 8 GM Inhaler INH ONE (12:12)
== END 2021-07-30 12:38 | disposition home or self-care (01) ==
LOC: MW.ED 10:31
DX: U07.1 COVID-19 (principal); J12.82 Pneumonia due to coronavirus disease 2019; D72.819 Decreased white blood cell count, unspecified
CPT/HCPCS: 36415; 71045; 80053; 81001; 85025; 93005; 99285; A9270; J7030

== ENCOUNTER 2021-08-02 15:31 | Inpatient (IN) | payer MEDICAID ==
[2021-08-02] MEDS ORDERED: Ketorolac 30 MG/ML SDV IVPUSH ONE (15:53)
[2021-08-02] MEDS ORDERED: Ondansetron 4 MG/2 ML SDV IVPUSH ONE (15:53)
[2021-08-02] MEDS ORDERED: Sodium Chloride 0.9% 1,000 ML IV ONE ×2 (15:53→17:24)
[2021-08-02 16:34] LABS: BLOOD UREA NITROGEN,BUN 8 mg/dL (7.0-18.0); CARBON DIOXIDE,CO2 22.7 mmol/L (21.0-32.0); CHLORIDE,CL 101 mmol/L (98-107); GLUCOSE RANDOM 104 mg/dL (74-106); POTASSIUM,K 4.1 mmol/L (3.5-5.1); SODIUM,NA 139 mmol/L (136-145)
[2021-08-02] MEDS ORDERED: cefTRIAXone 1 GM in Sodium Chloride 0.9% 50 ML IV ONE (17:17)
[2021-08-02] MEDS ORDERED: Azithromycin 500 MG in Sodium Chloride 0.9% 250 ML IV SCH (17:30)
[2021-08-02] MEDS ORDERED: Azithromycin 500 MG in Sodium Chloride 0.9% 250 ML IV STA (17:50)
[2021-08-02] MEDS ORDERED: Albuterol/Ipratropium 3.0-0.5 MG/3 ML Neb Soln NEB PRN (18:38)
[2021-08-02] MEDS ORDERED: Lactated Ringers 1,000 ML IV ONE (18:38)
[2021-08-02] MEDS: Enoxaparin 40 MG/0.4 ML Syringe SUBCUT SCH (20:10)
[2021-08-02] MEDS: Lactated Ringers 1,000 ML IV SCH (21:34)
[2021-08-03] MEDS: Acetaminophen 325 MG Tab PO PRN (00:19)
[2021-08-03] MEDS: Lactated Ringers 1,000 ML IV SCH ×2 (05:37→13:04)
[2021-08-03 08:02] LABS: BLOOD UREA NITROGEN,BUN 7 mg/dL (7.0-18.0); CARBON DIOXIDE,CO2 23.2 mmol/L (21.0-32.0); CHLORIDE,CL 104 mmol/L (98-107); GLUCOSE RANDOM 89 mg/dL (74-106); POTASSIUM,K 3.6 mmol/L (3.5-5.1); SODIUM,NA 137 mmol/L (136-145)
[2021-08-03] MEDS: Metoclopramide 10 MG/2 ML SDV IVPUSH PRN (10:55)
[2021-08-03] MEDS: Codeine/guaiFENesin 10-100 MG/5 ML Syrup 5 ML Cup PO PRN ×2 (13:03→20:01)
[2021-08-03] MEDS: Pantoprazole 40 MG in Sodium Chloride 0.9% 10 ML IVPUSH SCH (14:22)
[2021-08-03] MEDS: cefTRIAXone 1 GM in Sodium Chloride 0.9% 50 ML IV SCH (16:18)
[2021-08-03] MEDS: Azithromycin 500 MG in Sodium Chloride 0.9% 250 ML IV SCH (17:56)
[2021-08-03] MEDS: Enoxaparin 40 MG/0.4 ML Syringe SUBCUT SCH (20:01)
[2021-08-04] MEDS: Codeine/guaiFENesin 10-100 MG/5 ML Syrup 5 ML Cup PO PRN ×4 (00:02→20:03)
[2021-08-04] MEDS: Acetaminophen 325 MG Tab PO PRN (00:03)
[2021-08-04] MEDS: Lactated Ringers 1,000 ML IV SCH ×3 (01:51→18:39)
[2021-08-04 07:39] LABS: BLOOD UREA NITROGEN,BUN 5 mg/dL (7.0-18.0); CARBON DIOXIDE,CO2 27.5 mmol/L (21.0-32.0); CHLORIDE,CL 104 mmol/L (98-107); GLUCOSE RANDOM 97 mg/dL (74-106); POTASSIUM,K 3.6 mmol/L (3.5-5.1); SODIUM,NA 141 mmol/L (136-145)
[2021-08-04] MEDS: Metoclopramide 10 MG/2 ML SDV IVPUSH PRN (10:06)
[2021-08-04] MEDS: Pantoprazole 40 MG in Sodium Chloride 0.9% 10 ML IVPUSH SCH (13:00)
[2021-08-04] MEDS: cefTRIAXone 1 GM in Sodium Chloride 0.9% 50 ML IV SCH (16:31)
[2021-08-04] MEDS ORDERED: REMDESIVIR 200 MG in Sodium Chloride 0.9% 250 ML IV ONE ×2 (18:02→20:00)
[2021-08-04] MEDS ORDERED: Albuterol/Ipratropium 4 GM Inhalation Spray INH PRN (18:18)
[2021-08-04] MEDS ORDERED: Dexamethasone 4 MG/ML SDV IVPUSH ONE (18:30)
[2021-08-04] MEDS: Azithromycin 500 MG in Sodium Chloride 0.9% 250 ML IV SCH (18:48)
[2021-08-04] MEDS: Enoxaparin 40 MG/0.4 ML Syringe SUBCUT SCH (20:03)
[2021-08-04] MEDS ORDERED: VANCOmycin 2 GM/400 ML 400 ML IV ONE (21:45)
[2021-08-05] MEDS: Lactated Ringers 1,000 ML IV SCH ×2 (07:31→17:34)
[2021-08-05 07:57] LABS: BLOOD UREA NITROGEN,BUN 6 mg/dL (7.0-18.0); CHLORIDE,CL 104 mmol/L (98-107); GLUCOSE RANDOM 101 mg/dL (74-106); POTASSIUM,K 3.7 mmol/L (3.5-5.1); SODIUM,NA 140 mmol/L (136-145)
[2021-08-05] MEDS: Dexamethasone 4 MG Tab PO SCH (09:21)
[2021-08-05] MEDS: Codeine/guaiFENesin 10-100 MG/5 ML Syrup 5 ML Cup PO PRN (09:22)
[2021-08-05] MEDS: Metoclopramide 10 MG/2 ML SDV IVPUSH PRN (09:22)
[2021-08-05] MEDS: Pantoprazole 40 MG in Sodium Chloride 0.9% 10 ML IVPUSH SCH (14:04)
[2021-08-05] MEDS: cefTRIAXone 1 GM in Sodium Chloride 0.9% 50 ML IV SCH (16:30)
[2021-08-05] MEDS ORDERED: REMDESIVIR 100 MG in Sodium Chloride 0.9% 100 ML IV SCH (20:00)
[2021-08-05] MEDS: Enoxaparin 40 MG/0.4 ML Syringe SUBCUT SCH (22:03)
[2021-08-06] MEDS: Azithromycin 500 MG in Sodium Chloride 0.9% 250 ML IV SCH ×2 (00:55→17:28)
[2021-08-06] MEDS: Dexamethasone 4 MG Tab PO SCH (09:24)
[2021-08-06 09:28] LABS: BLOOD UREA NITROGEN,BUN 14 mg/dL (7.0-18.0); CARBON DIOXIDE,CO2 24.6 mmol/L (21.0-32.0); CHLORIDE,CL 106 mmol/L (98-107); GLUCOSE RANDOM 90 mg/dL (74-106); POTASSIUM,K 3.7 mmol/L (3.5-5.1); SODIUM,NA 141 mmol/L (136-145)
[2021-08-06] MEDS: Pantoprazole 40 MG in Sodium Chloride 0.9% 10 ML IVPUSH SCH (12:46)
[2021-08-06] MEDS: cefTRIAXone 1 GM in Sodium Chloride 0.9% 50 ML IV SCH (15:14)
[2021-08-06] MEDS: Enoxaparin 40 MG/0.4 ML Syringe SUBCUT SCH (20:18)
[2021-08-07 08:55] LABS: BLOOD UREA NITROGEN,BUN 14 mg/dL (7.0-18.0); CARBON DIOXIDE,CO2 25.7 mmol/L (21.0-32.0); CHLORIDE,CL 105 mmol/L (98-107); GLUCOSE RANDOM 86 mg/dL (74-106); POTASSIUM,K 3.8 mmol/L (3.5-5.1); SODIUM,NA 143 mmol/L (136-145)
[2021-08-07] MEDS ORDERED: Azithromycin 250 MG Tab PO ONE (10:46)
[2021-08-07] MEDS ORDERED: Azithromycin 250 MG Tab PO SCH (11:30)
[2021-08-07] MEDS ORDERED: cefTRIAXone 1 GM in Sodium Chloride 0.9% 50 ML IV ONE (12:00)
[2021-08-07] MEDS: Pantoprazole 40 MG in Sodium Chloride 0.9% 10 ML IVPUSH SCH (14:01)
== END 2021-08-07 14:20 | disposition home or self-care (01) | DRG 871 ==
LOC: MW.ED 15:31 → MW.MS 17:25 → OBSVTOIN 08-03 12:13 → MW.MS 08-03 16:12
PROVIDERS: ADMIT Student in an Organized Health Care Education/Training Program; ATTEND Student in an Organized Health Care Education/Training Program
PROC: XW033E5 Introduction of Remdesivir Anti-infective into Peripheral Vein, Percutaneous Approach, New Technology Group 5 (ICD-10-PCS; principal; 2021-08-04)
PROC: 3E0333Z Introduction of Anti-inflammatory into Peripheral Vein, Percutaneous Approach (ICD-10-PCS; 2021-08-04)
PROC: 3E0DX3Z Introduction of Anti-inflammatory into Mouth and Pharynx, External Approach (ICD-10-PCS; 2021-08-05)
DX: A41.89 Other specified sepsis (principal); U07.1 COVID-19; J12.82 Pneumonia due to coronavirus disease 2019; J45.909 Unspecified asthma, uncomplicated; A41.9 Sepsis, unspecified organism; N39.0 Urinary tract infection, site not specified; D72.819 Decreased white blood cell count, unspecified; N17.9 Acute kidney failure, unspecified; Z98.890 Other specified postprocedural states
CPT/HCPCS: 36415 ×2; 71045; 80053 ×2; 81001; 81025; 83605; 83735; 84100; 85025 ×2; 87635; 96365; 96375; 99285; A9270; J0456; J0696; J1650; J1885; J2405; J2765; J7030 ×2; J7050; J7120 ×3; 80048; 80202; 82248; 87040; 87077; 87186; 94640; 96372; C9113; G0378; J1100; J3370; J7620-GY; J8540; U0002

== ENCOUNTER 2021-10-30 22:16 | Emergency (ER) | payer MEDICAID ==
[2021-10-30] MEDS ORDERED: Ketorolac 30 MG/ML SDV IM ONE (23:49)
== END 2021-10-31 02:22 | disposition home or self-care (01) ==
LOC: MW.ED 22:16
DX: S39.011A Strain of muscle, fascia and tendon of abdomen, initial encounter (principal); Z86.16 Personal history of COVID-19; X50.0XXA Overexertion from strenuous movement or load, initial encounter
CPT/HCPCS: 71046; 96372; 99283; J1885

== ENCOUNTER 2022-10-06 15:13 | Emergency (ER) | payer BC ==
[2022-10-06] MEDS ORDERED: Acetaminophen 325 MG Tab PO ONE (16:44)
[2022-10-06] MEDS ORDERED: Metoclopramide 10 MG Tab PO ONE (16:44)
== END 2022-10-06 18:24 | disposition home or self-care (01) ==
LOC: MW.ED 15:13
DX: R51.9 Headache, unspecified (principal); Z88.1 Allergy status to other antibiotic agents; Z86.16 Personal history of COVID-19
CPT/HCPCS: 99283; A9270

== ENCOUNTER 2022-10-30 05:14 | Inpatient (IN) | payer BC ==
[2022-10-30] MEDS ORDERED: Carboprost Tromethamine 250 MCG/1 ML Amp IM PRN (05:53)
[2022-10-30] MEDS ORDERED: Sodium Chloride 0.9% 10 ML Syringe FLUSH PRN (05:53)
[2022-10-30] MEDS ORDERED: Butorphanol 1 MG/ML SDV IVPUSH PRN (05:53)
[2022-10-30] MEDS ORDERED: Misoprostol 200 MCG Tab PO PRN (05:53)
[2022-10-30] MEDS ORDERED: Tranexamic Acid 1,000 MG in Sodium Chloride 0.9% 100 ML IV PRN (05:53)
[2022-10-30] MEDS ORDERED: Terbutaline 1 MG/ML SDV SUBCUT PRN (05:53)
[2022-10-30] MEDS ORDERED: Sodium Chloride 0.9% 20 ML SDV IV PRN (05:53)
[2022-10-30] MEDS ORDERED: Sodium Chloride 0.9% 2.5 ML Syringe FLUSH PRN (05:53)
[2022-10-30] MEDS ORDERED: Lidocaine 1% 50 ML MDV INJECT PRN (05:53)
[2022-10-30] MEDS ORDERED: Methylergonovine 0.2 MG/1 ML Amp IM PRN (05:53)
[2022-10-30] MEDS ORDERED: Water For Irrigation,Sterile 1,000 ML Container IRR PRN (05:53)
[2022-10-30] MEDS ORDERED: Oxytocin/0.9 % Sodium Chloride 30 UNIT/500 ML BAG IV SCH ×2 (06:00)
[2022-10-30] MEDS: Lactated Ringers 1,000 ML IV SCH ×2 (07:10→10:55)
[2022-10-30] MEDS ORDERED: Ropivacaine/PF 400 MG/200 ML PCA ONE (10:35)
[2022-10-30] MEDS ORDERED: Bupivacaine 0.5% 10 ML SDV ONE (10:35)
[2022-10-30] MEDS ORDERED: ePHEDrine 50 MG/ML SDV IVPUSH PRN ×2 (11:03)
[2022-10-30] MEDS ORDERED: Phenylephrine HCl 0.5 MG/5 ML AMP IVPUSH PRN (11:03)
[2022-10-30] MEDS ORDERED: Ropivacaine HCl/PF 400 MG in Premix Bag 1 BAG EPIDUR SCH (11:15)
[2022-10-30] MEDS ORDERED: Lanolin 100% Cream 7 GM Tube TOP PRN (14:29)
[2022-10-30] MEDS ORDERED: Witch Hazel Medicated Pads 40/Jar TOP PRN (14:29)
[2022-10-30] MEDS ORDERED: Bisacodyl 10 MG Supp RECTAL PRN (14:29)
[2022-10-30] MEDS ORDERED: Ibuprofen 400 MG Tab PO PRN (14:29)
[2022-10-30] MEDS ORDERED: Docusate Sodium 100 MG Cap PO PRN (14:29)
[2022-10-30] MEDS ORDERED: Benzocaine/Menthol 20%-0.5% Spray 78 GM Cannister TOP PRN (14:29)
[2022-10-30] MEDS ORDERED: Ibuprofen 800 MG Tab PO PRN (14:29)
[2022-10-30] MEDS ORDERED: Measles, Mumps & Rubella Vaccine 0.5 ML SDV SUBCUT ONE (14:29)
[2022-10-30] MEDS ORDERED: Acetaminophen 500 MG Tab PO PRN (14:29)
[2022-10-30] MEDS ORDERED: oxyCODONE 5 MG Tab PO PRN (14:29)
[2022-10-30] MEDS: Acetaminophen 500 MG Tab PO PRN (21:19)
[2022-10-31] MEDS: Acetaminophen 500 MG Tab PO PRN ×2 (04:42→12:36)
== END 2022-10-31 17:54 | disposition home or self-care (01) | DRG 560 ==
LOC: MW.OBCHECK 05:14 → MW.OB 05:16 → MW.OBCHECK 05:53 → MW.OB 05:53 → OBSVTOIN 14:29 → MW.OB 20:11
PROVIDERS: ADMIT Obstetrics & Gynecology; ATTEND Obstetrics & Gynecology
PROC: 10E0XZZ Delivery of Products of Conception, External Approach (ICD-10-PCS; principal; 2022-10-30)
PROC: 10907ZC Drainage of Amniotic Fluid, Therapeutic from Products of Conception, Via Natural or Artificial Opening (ICD-10-PCS; 2022-10-30)
PROC: 3E033VJ Introduction of Other Hormone into Peripheral Vein, Percutaneous Approach (ICD-10-PCS; 2022-10-30)
PROC: 3E0R3BZ Introduction of Anesthetic Agent into Spinal Canal, Percutaneous Approach (ICD-10-PCS; 2022-10-30)
PROC: 00HU33Z Insertion of Infusion Device into Spinal Canal, Percutaneous Approach (ICD-10-PCS; 2022-10-30)
DX: O23.43 Unspecified infection of urinary tract in pregnancy, third trimester (principal); O71.82 Other specified trauma to perineum and vulva; Z3A.39 39 weeks gestation of pregnancy; Z37.0 Single live birth; Z86.16 Personal history of COVID-19
CPT/HCPCS: 01967; 36415; 51702; 59025; 59409; 82803; 85014; 85018; 85027; 86592; 86850; 86900; 86901; A9270-GY; J2590; J2795; J3490; J7120